=== PATIENT | male | born 1945 | race Caucasian/White ===

== ENCOUNTER → 2016-09-28 | Outpatient (CLI) | payer MEDICARE ==
--- NOTE | 2016-09-28 14:13 | US ---
EXAMINATION TYPE: US venous doppler duplex UE LT DATE OF EXAM: 09/28/2016 COMPARISON: US CLINICAL HISTORY: M79.602 Left Arm Pain/Z86.718 HX of Deep Vein Thrombosis. Left lower arm palpable/p ainful area x 3 days, patient on blood thinners SIDE PERFORMED: Left Grayscale, color doppler, spectral doppler imaging performed of the deep veins of the left upper extr emity. There is normal flow, compressibility and vascular waveforms. Left Arm: Appears negative for DVT, scanned anterior lower arm area of concern: no abnormality seen b y ultrasound at this time. IMPRESSION: No evidence for DVT at this time.
== END | disposition home or self-care (01) ==
LOC: RADUSWWP 13:00
PROVIDERS: ATTEND Family Medicine
DX: M79.602 Pain in left arm (principal); Z86.718 Personal history of other venous thrombosis and embolism

== ENCOUNTER → 2016-10-19 | Outpatient (CLI) | payer MEDICARE ==
--- NOTE | 2016-10-19 10:20 | US ---
EXAMINATION TYPE: US kidneys/renal and bladder DATE OF EXAM: 10/19/2016 COMPARISON: NONE CLINICAL HISTORY: R35.0 Urinary Frequency. Urinary frequency, pt states he is unable to empty bladder completely EXAM MEASUREMENTS: Right Kidney: 8.6 x 4.9 x 4.4 cm Left Kidney: 10.4 x 5.4 x 5.0 cm Post Void Residual Volume: 59 mL. Normal less than 50 mL. Right Kidney: Small in size, cortical thinning, no evidence of hydro Left Kidney: wnl Bladder: wnl Bilateral Jets seen: Yes Normal Post Void Residual: No IMPRESSION: 1. Mild post void residual. 2. Retroperitoneal ultrasound otherwise unremarkable.
== END | disposition home or self-care (01) ==
LOC: RADUSWWP 09:17
PROVIDERS: ATTEND Family Medicine
DX: R35.0 Frequency of micturition (principal)
CPT/HCPCS: 76770

== ENCOUNTER 2017-01-06 16:34 | Emergency (ER) | payer MEDICARE ==
[2017-01-06 16:50] VITALS: BP 120/72; PULSE 76; RESP 18; TEMP 97.5
--- NOTE | 2017-01-06 17:13 | ED ---
General Adult HPI - General Chief complaint: Back Pain/Injury Stated complaint: Fall Time Seen by Provider: 01/06/17 16:54 Source: patient, RN notes reviewed Mode of arrival: ambulatory Limitations: no limitations - History of Present Illness Initial comments: 71-year-old male presents to the emergency department with a chief complaint of fall. Patient states that yesterday he slipped on the stairs. He fell forward down the stairs he braced himself with his elbow as he did not hit his head. Patient states however he is having some back pain with this. He denies any abdominal pain. Patient denies any bowel or bladder control issues patient denies any saddle anesthesia. Patient was concerned due to his continued back pains without that he should be seen. Patient states it's right into the center. Patient denies any recent fever, chills, shortness of breath, chest pain , abdominal pain, nausea vomiting, numbness or tingling, dysuria or hematuria, constipation or diarrhea, headaches or visual changes, or any other current symptoms. - Related Data Home Medications Medication Instructions Recorded Confirmed Citalopram Hydrobromide [CeleXA] 20 mg PO HS 10/31/13 11/01/13 Cyclobenzaprine [Flexeril] 5 mg PO TID 10/31/13 11/01/13 Doxazosin [Cardura] 4 mg PO HS 10/31/13 11/01/13 Furosemide [Lasix] 20 mg PO DAILY 10/31/13 11/01/13 Lisinopril [Zestril] 2.5 mg PO DAILY 10/31/13 11/01/13 Simvastatin [Zocor] 80 mg PO HS 10/31/13 11/01/13 clonazePAM [KlonoPIN] 1 mg PO BID 10/31/13 11/01/13 metFORMIN HCL [Glucophage] 500 mg PO DAILY 10/31/13 11/01/13 oxyCODONE-APAP 5-325MG [Percocet 1 each PO Q6HR PRN 10/31/13 11/01/13 5-325 mg] traMADol HCL [Ultram] 50 mg PO Q8HR PRN 10/31/13 11/01/13 Previous Rx's Medication Instructions Recorded Aspirin EC [Ecotrin] 81 mg PO DAILY #30 tablet. 08/04/14 traMADol HCl [Ultram] 50 mg PO Q6H PRN #20 tab 01/06/17 Allergies Allergy/AdvReac Type Severity Reaction Status Date / Time hydrocodone Allergy Itching Verified 01/06/17 16:50 Review of Systems ROS Statement: Those systems with pertinent positive or pertinent negative responses have been documented in the HPI. ROS Other: All systems not noted in ROS Statement are negative. Past Medical History Past Medical History: Diabetes Mellitus, Hypertension, Prostate Disorder Additional Past Medical History / Comment(s): enlarged prostate, Factor V Leiden , DM borderline History of Any Multi-Drug Resistant Organisms: None Reported Past Surgical History: Adenoidectomy, Orthopedic Surgery, Tonsillectomy Additional Past Surgical History / Comment(s): arthroscopic knee sx, carpel tunnel release in Left hand Past Anesthesia/Blood Transfusion Reactions: No Reported Reaction Past Psychological History: Anxiety, Depression Smoking Status: Former smoker Past Alcohol Use History: None Reported Past Drug Use History: None Reported General Exam - General Exam Comments Initial Comments: General: The patient is awake and alert, in no distress, and does not appear acutely ill. Eye: Pupils are equal, round and reactive to light, extra-ocular movements are intact; there is normal conjunctiva bilaterally. No signs of icterus. Ears, nose, mouth and throat: There are moist mucous membranes and no oral lesions. Neck: The neck is supple, there is no tenderness. Cardiovascular: There is a regular rate and rhythm. No murmur, rub or gallop is appreciated. Respiratory: Lungs are clear to auscultation, respirations are non-labored, breath sounds are equal. No wheezes, stridor, rales, or rhonchi. Gastrointestinal: Soft, non-distended, non-tender abdomen without masses or organomegaly noted. There is no rebound or guarding present. No CVA tenderness. Bowel sounds are unremarkable. Back: There is tenderness to palpation in the midline to lower thoracic and lumbar spine. There is no obvious deformity. No rashes noted. Musculoskeletal: Normal ROM, no tenderness, There is no pedal edema. There is no calf tenderness or swelling. Sensation intact. Pulses equal bilaterally 2+. Neurological: CN II-XII intact, There are no obvious motor or sensory deficits. Coordination appears grossly intact. Speech is normal. Skin: Skin is warm and dry and no rashes or lesions are noted. Psychiatric: Cooperative, appropriate mood & affect, normal judgment. Limitations: no limitations Course Vital Signs 01/06/17 16:46 Temperature 97.5 F L Pulse Rate 76 Respiratory 18 Rate Blood Pressure 120/72 O2 Sat by Pulse 98 Oximetry Medical Decision Making - Medical Decision Making 71-year-old male presents for back pain after fall. At this time x-rays reviewed that showed no acute fracture. At this time we did discuss follow-up and return parameters outpatient family's questions. They stated they understood and they are in agreement with this plan. All questions have been answered. They will be discharged home. - Radiology Data Radiology results: report reviewed, image reviewed Disposition Clinical Impression: Lumbar strain Disposition: HOME SELF-CARE Condition: Stable Instructions: Acute Low Back Pain (ED) Additional Instructions: Please use medication as discussed. Please follow up with family doctor if symptoms have not improved over the next two days. Please return to the emergency room if your symptoms increase or worsen or for any other concerns. Prescriptions: traMADol HCl [Ultram] 50 mg PO Q6H PRN #20 tab PRN Reason: Pain Referrals: Jignesh Buck DO [Primary Care Provider] - 1-2 days Time of Disposition: 17:44
--- NOTE | 2017-01-06 17:34 | XR ---
EXAMINATION TYPE: XR lumbar spine 2 or 3V DATE OF EXAM: 01/06/2017 COMPARISON: 07/14/2012 HISTORY: Back pain TECHNIQUE: 3 views FINDINGS: Vertebra have normal alignment. There is hypertrophic bridging anterior osteophyte formatio n. I see no compression fracture. There is no significant disc space narrowing. Sacroiliac joints are intact. IMPRESSION: Spondylotic changes with bridging osteophyte formation. No compression fracture. No signi ficant change.
--- NOTE | 2017-01-06 17:35 | XR ---
EXAMINATION TYPE: XR thoracic spine 2V DATE OF EXAM: 01/06/2017 COMPARISON: 07/14/2012 HISTORY: Back pain TECHNIQUE: 3 views FINDINGS: The vertebra have normal alignment. Posterior elements are intact. There is no paraspinal m ass. There is hypertrophic spurring in the mid and lower thoracic spine. IMPRESSION: Spondylotic changes. No fracture. No change.
== END 2017-01-06 18:00 | disposition home or self-care (01) ==
LOC: EC 16:34
DX: S39.012A Strain of muscle, fascia and tendon of lower back, initial encounter (principal); N40.0 Benign prostatic hyperplasia without lower urinary tract symptoms; F32.9 Major depressive disorder, single episode, unspecified; I10 Essential (primary) hypertension; Z87.891 Personal history of nicotine dependence; Z88.5 Allergy status to narcotic agent; Z79.84 Long term (current) use of oral hypoglycemic drugs; Z79.899 Other long term (current) drug therapy; W10.9XXA Fall (on) (from) unspecified stairs and steps, initial encounter
CPT/HCPCS: 72070; 72100; 99283

== ENCOUNTER → 2017-04-16 | Outpatient (CLI) | payer MEDICARE ==
--- NOTE | 2017-04-16 17:52 | XR ---
EXAMINATION TYPE: XR lumbar spine 2 or 3V DATE OF EXAM: 04/16/2017 COMPARISON: NONE HISTORY: Back pain TECHNIQUE: 3 views FINDINGS: The lumbar vertebra have normal alignment. Disc spaces are fairly normal. There is hypertro phic anterior bridging osteophyte formation. Abdominal aorta is atheromatous. Posterior elements are intact. There is no compression fracture. IMPRESSION: Multilevel spondylosis. No fracture seen.
== END | disposition home or self-care (01) ==
LOC: RADXRYALE 16:45
PROVIDERS: ATTEND Family Medicine
DX: M47.816 Spondylosis without myelopathy or radiculopathy, lumbar region (principal)
CPT/HCPCS: 72100

== ENCOUNTER 2017-04-20 03:42 | Observation (INO) | payer MEDICARE ==
[2017-04-20] MEDS ORDERED: ASPIRIN 81 MG PO STA (04:00)
[2017-04-20] MEDS ORDERED: NITROGLYCERIN OINT 1 INCH/GM PACKET TOPICAL STA (04:00)
--- NOTE | 2017-04-20 04:05 | ED ---
General Adult HPI - General Chief complaint: Chest Pain Stated complaint: Back Pain, Chest pressure Time Seen by Provider: 04/20/17 03:45 Source: patient, RN notes reviewed Mode of arrival: ambulatory Limitations: no limitations - History of Present Illness Initial comments: This is a 72-year-old male presents emergency department claiming that he started having chest pain about 2 hours ago. Patient states the left side of his chest and it feels like pressure. Patient states associated with this he was having some shortness of breath. Patient denies any sweating episodes patient denies any nausea. Patient states he is a diabetic and he has high blood pressure and high cholesterol. Patient also has a history of atrial fibrillation and is on Coumadin. Patient denies any recent fever chills or cough. Patient denies any abdominal pain patient denies nausea vomiting diarrhea. Patient denies headache patient denies numbness weakness. Patient denies any lightheadedness dizziness or near syncopal episode. Patient denies any recent injury or trauma. - Related Data Home Medications Medication Instructions Recorded Confirmed Citalopram Hydrobromide [CeleXA] 20 mg PO HS 10/31/13 04/20/17 Cyclobenzaprine [Flexeril] 5 mg PO TID 10/31/13 04/20/17 Lisinopril [Zestril] 2.5 mg PO DAILY PRN 10/31/13 04/20/17 clonazePAM [KlonoPIN] 1 mg PO BID 10/31/13 04/20/17 metFORMIN HCL [Glucophage] 500 mg PO DAILY 10/31/13 04/20/17 traMADol HCL [Ultram] 50 mg PO Q8HR PRN 10/31/13 04/20/17 Atorvastatin [Lipitor] 10 mg PO HS 01/06/17 04/20/17 Cetirizine HCl [Zyrtec] 10 mg PO DAILY 01/06/17 04/20/17 Cholecalciferol [Vitamin D3] 1,000 unit PO DAILY 01/06/17 04/20/17 Tamsulosin HCl [Flomax] 0.4 mg PO BID 01/06/17 04/20/17 Warfarin [Coumadin] 6 mg PO SUTUWEFRSA 01/06/17 04/20/17 Warfarin [Coumadin] 9 mg PO MOTH 10/08/17 01/20/18 buPROPion HCL [Wellbutrin SR] 150 mg PO BID 01/06/17 04/20/17 Previous Rx's Medication Instructions Recorded Aspirin EC [Ecotrin] 81 mg PO DAILY #30 tablet. 11/02/13 traMADol HCl [Ultram] 50 mg PO Q6H PRN #20 tab 01/06/17 Allergies Allergy/AdvReac Type Severity Reaction Status Date / Time hydrocodone Allergy Itching Verified 04/20/17 03:50 Review of Systems ROS Statement: Those systems with pertinent positive or pertinent negative responses have been documented in the HPI. ROS Other: All systems not noted in ROS Statement are negative. Past Medical History Past Medical History: Diabetes Mellitus, Hypertension, Prostate Disorder Additional Past Medical History / Comment(s): enlarged prostate, Factor V Leiden , DM borderline History of Any Multi-Drug Resistant Organisms: None Reported Past Surgical History: Adenoidectomy, Orthopedic Surgery, Tonsillectomy Additional Past Surgical History / Comment(s): arthroscopic knee sx, carpel tunnel release in Left hand Past Anesthesia/Blood Transfusion Reactions: No Reported Reaction Past Psychological History: Anxiety, Depression Smoking Status: Former smoker Past Alcohol Use History: None Reported Past Drug Use History: None Reported General Exam - General Exam Comments Initial Comments: GENERAL: Patient is well-developed and well-nourished. Patient is nontoxic and well- hydrated and is in mild distress. ENT: Neck is soft and supple. No significant lymphadenopathy is noted. Oropharynx is clear. Moist mucous membranes. Neck has full range of motion without eliciting any pain. EYES: The sclera were anicteric and conjunctiva were pink and moist. Extraocular movements were intact and pupils were equal round and reactive to light. Eyelids were unremarkable. PULMONARY: Unlabored respirations. Good breath sounds bilaterally. No audible rales rhonchi or wheezing was noted. CARDIOVASCULAR: There is a regular rate and rhythm without any murmurs gallops or rubs. ABDOMEN: Soft and nontender with normal bowel sounds. No palpable organomegaly was noted. There is no palpable pulsatile mass. SKIN: Skin is clear with no lesions or rashes and otherwise unremarkable. NEUROLOGIC: Patient is alert and oriented x3. Cranial nerves II through XII are grossly intact. Motor and sensory are also intact. Normal speech, volume and content. Symmetrical smile. MUSCULOSKELETAL: Normal extremities with adequate strength and full range of motion. No lower extremity swelling or edema. No calf tenderness. LYMPHATICS: No significant lymphadenopathy is noted PSYCHIATRIC: Normal psychiatric evaluation. Normal interpersonal interactions appears functionally intact in deals appropriately with others. No signs of depression. No signs of anxiety. Limitations: no limitations Course Vital Signs 04/20/17 04/20/17 04/20/17 03:45 04:19 04:40 Temperature 98.3 F Pulse Rate 77 62 Pulse Rate [ 84 Conference Manager ] Respiratory 20 14 Rate Blood Pressure 123/66 143/63 O2 Sat by Pulse 98 97 Oximetry Medical Decision Making - Medical Decision Making EKG shows normal sinus rhythm at 66 bpm [place] interval is 178 QRS is under 12 QT interval 444 QTC is 465. Patient's EKG shows no ST segment elevation or depression Chest x-ray showed no acute abnormality. I spoke with Dr. Elijah Nava agreed to accept the patient admitted the patient I wrote admitting orders and consult to cardiology. I continued Nitropaste and aspirin on the floor. - Lab Data Result diagrams: 04/20/17 04:11 04/20/17 04:11 Lab Results 04/20/17 04/20/17 04/20/17 Range/Units 04:11 04:11 04:11 WBC 8.0 (3.8-10.6) k/uL RBC 4.99 (4.30-5.90) m/uL Hgb 14.2 (13.0-17.5) gm/dL Hct 43.2 (39.0-53.0) % MCV 86.6 (80.0-100.0) fL MCH 28.4 (25.0-35.0) pg MCHC 32.8 (31.0-37.0) g/dL RDW 14.8 (11.5-15.5) % Plt Count 279 (150-450) k/uL Neutrophils % 62 % Lymphocytes % 25 % Monocytes % 6 % Eosinophils % 4 % Basophils % 1 % Neutrophils # 4.9 (1.3-7.7) k/uL Lymphocytes # 2.0 (1.0-4.8) k/uL Monocytes # 0.5 (0-1.0) k/uL Eosinophils # 0.3 (0-0.7) k/uL Basophils # 0.1 (0-0.2) k/uL PT (9.0-12.0) sec INR (<1.2) APTT (22.0-30.0) sec Sodium 140 (137-145) mmol/L Potassium 3.9 (3.5-5.1) mmol/L Chloride 104 (98-107) mmol/L Carbon Dioxide 27 (22-30) mmol/L Anion Gap 9 mmol/L BUN 18 (9-20) mg/dL Creatinine 1.21 (0.66-1.25) mg/dL Est GFR (MDRD) Af Amer >60 (>60 ml/min/1.73 sqM) Est GFR (MDRD) Non-Af 59 (>60 ml/min/1.73 sqM) Glucose 106 H (74-99) mg/dL Calcium 8.8 (8.4-10.2) mg/dL Magnesium 2.2 (1.6-2.3) mg/dL Total Bilirubin 0.4 (0.2-1.3) mg/dL AST 31 (17-59) U/L ALT 42 (21-72) U/L Alkaline Phosphatase 91 (38-126) U/L Total Creatine Kinase 203 H (55-170) U/L CK-MB (CK-2) 2.2 (0.0-2.4) ng/mL CK-MB (CK-2) Rel Index 1.1 Troponin I <0.012 (0.000-0.034) ng/mL Total Protein 6.9 (6.3-8.2) g/dL Albumin 4.1 (3.5-5.0) g/dL 04/20/17 Range/Units 04:11 WBC (3.8-10.6) k/uL RBC (4.30-5.90) m/uL Hgb (13.0-17.5) gm/dL Hct (39.0-53.0) % MCV (80.0-100.0) fL MCH (25.0-35.0) pg MCHC (31.0-37.0) g/dL RDW (11.5-15.5) % Plt Count (150-450) k/uL Neutrophils % % Lymphocytes % % Monocytes % % Eosinophils % % Basophils % % Neutrophils # (1.3-7.7) k/uL Lymphocytes # (1.0-4.8) k/uL Monocytes # (0-1.0) k/uL Eosinophils # (0-0.7) k/uL Basophils # (0-0.2) k/uL PT 13.8 H (9.0-12.0) sec INR 1.5 H (<1.2) APTT 25.3 (22.0-30.0) sec Sodium (137-145) mmol/L Potassium (3.5-5.1) mmol/L Chloride (98-107) mmol/L Carbon Dioxide (22-30) mmol/L Anion Gap mmol/L BUN (9-20) mg/dL Creatinine (0.66-1.25) mg/dL Est GFR (MDRD) Af Amer (>60 ml/min/1.73 sqM) Est GFR (MDRD) Non-Af (>60 ml/min/1.73 sqM) Glucose (74-99) mg/dL Calcium (8.4-10.2) mg/dL Magnesium (1.6-2.3) mg/dL Total Bilirubin (0.2-1.3) mg/dL AST (17-59) U/L ALT (21-72) U/L Alkaline Phosphatase (38-126) U/L Total Creatine Kinase (55-170) U/L CK-MB (CK-2) (0.0-2.4) ng/mL CK-MB (CK-2) Rel Index Troponin I (0.000-0.034) ng/mL Total Protein (6.3-8.2) g/dL Albumin (3.5-5.0) g/dL Disposition Clinical Impression: Chest pain Disposition: ADMITTED IP TO THIS HOSP Referrals: Jignesh Buck DO [Primary Care Provider] - 1-2 days Time of Disposition: 05:10
[2017-04-20 04:23] LABS: Basophils # (A) 0.1 k/uL (0-0.2); Basophils % (A) 1 %; Eosinophils # (A) 0.3 k/uL (0-0.7); Eosinophils % (A) 4 %; HCT 43.2 % (39.0-53.0); HGB 14.2 gm/dL (13.0-17.5); Lymphocytes % (A) 25 %; MCH 28.4 pg (25.0-35.0); MCHC 32.8 g/dL (31.0-37.0); MCV 86.6 fL (80.0-100.0); Mean Platelet Volume 6.9; Monocytes # (A) 0.5 k/uL (0-1.0); Monocytes % (A) 6 %; Neutrophils # (A) 4.9 k/uL (1.3-7.7); Neutrophils % (A) 62 %; Platelet Count 279 k/uL (150-450); RBC 4.99 m/uL (4.30-5.90); RDW 14.8 % (11.5-15.5)
[2017-04-20 04:32] LABS: INR 1.5 (<1.2); Partial Thromboplastin Time 25.3 sec (22.0-30.0); Prothrombin Time 13.8 sec (9.0-12.0)
--- NOTE | 2017-04-20 04:35 | XR ---
EXAM: XR Chest, 2 Views CLINICAL HISTORY: Reason: Chest Pain TECHNIQUE: Frontal and lateral views of the chest. COMPARISON: No relevant prior studies available. FINDINGS: Lungs: Unremarkable. The lungs are clear. Pleural space: Unremarkable. No pneumothorax. Heart: Unremarkable. No cardiomegaly. Mediastinum: Unremarkable. Bones/joints: Mild degenerative changes of the thoracic spine. IMPRESSION: No acute findings.
[2017-04-20 04:39] LABS: AST 31 U/L (17-59); Albumin 4.1 g/dL (3.5-5.0); Alkaline Phosphatase 91 U/L (38-126); Anion Gap 9 mmol/L; Blood Urea Nitrogen 18 mg/dL (9-20); Calcium 8.8 mg/dL (8.4-10.2); Carbon Dioxide 27 mmol/L (22-30); Chloride 104 mmol/L (98-107); Glucose 106 mg/dL (74-99); Magnesium 2.2 mg/dL (1.6-2.3); Potassium 3.9 mmol/L (3.5-5.1); Sodium 140 mmol/L (137-145); Total Bilirubin 0.4 mg/dL (0.2-1.3); Total Protein 6.9 g/dL (6.3-8.2)
[2017-04-20 04:40] LABS: ALT 42 U/L (21-72)
[2017-04-20 04:43] LABS: Creatine Kinase 203 U/L (55-170)
[2017-04-20 04:56] LABS: Creatine Kinase MB 2.2 ng/mL (0.0-2.4); Troponin I <0.012 ng/mL (0.000-0.034)
[2017-04-20] MEDS ORDERED: NITROGLYCERIN SL TABS 0.4 MG TAB SUBLINGUAL PRN (05:10)
[2017-04-20] MEDS: NITROGLYCERIN OINT 1 INCH/GM PACKET TOPICAL SCH ×3 (06:16→17:45)
[2017-04-20 07:56] LABS: Creatine Kinase 176 U/L (55-170)
[2017-04-20] MEDS ORDERED: LORazepam 0.5 MG TAB PO PRN (08:06)
[2017-04-20 08:07] LABS: Creatine Kinase MB 1.8 ng/mL (0.0-2.4); Troponin I <0.012 ng/mL (0.000-0.034)
[2017-04-20 08:37] VITALS: RESP 16
[2017-04-20] MEDS ORDERED: LORATADINE 10 MG TAB PO SCH (09:00)
[2017-04-20] MEDS ORDERED: metFORMIN 500 MG TAB PO SCH (09:00)
[2017-04-20] MEDS ORDERED: DOCUSATE 100 MG CAP PO SCH (09:00)
[2017-04-20] MEDS ORDERED: CHOLECALCIFEROL 1,000 UNIT TAB PO SCH (09:00)
[2017-04-20] MEDS ORDERED: ASPIRIN 81 MG PO SCH (09:00)
[2017-04-20] MEDS ORDERED: TAMSULOSIN 0.4 MG CAP.ER.24H PO SCH ×2 (09:00→21:00)
[2017-04-20] MEDS ORDERED: buPROPion SR 150 MG TABLET.ER PO SCH (09:00)
--- NOTE | 2017-04-20 11:43 | CONS ---
CONSULTATION Alvarez Haque is a 72-year-old male patient, who presented with chest discomfort along the left pectoral area, fairly localized and the pain started yesterday and improved with nitroglycerin paste, but was still present in a mild form. His first 12- lead ECG shows sinus rhythm, normal PA, narrow QRS, normal ST segments in the precordial leads, flattening of the P-waves in the inferior leads. The followup 12- lead ECG after removing nitroglycerine does not show any new changes. His pain became a little worse. He denied any shortness of breath. He also complains of shortness of breath on exertion. 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 No dizziness, lightheadedness or palpitations. Past history of diabetes. He is on metformin. History of hypertension and a past history of atrial fibrillation. He is in sinus rhythm at this time and has not felt any palpitations. He is on Coumadin. REVIEW OF SYSTEMS: No fever, chills, or rigors. No cough or expectoration. No nausea, vomiting, or diarrhea. No hematuria, dysuria. No strokes, seizures or skin lesions. No musculoskeletal complaints. PHYSICAL EXAMINATION: Blood pressure is 111/66 mmHg, pulse rate is in the 60s. Temperature 98 degrees Fahrenheit. Head and neck examination is normal. Heart sounds S1, S2 normal. No murmurs or gallops. No rubs. Breath sounds are clear. No rhonchi no crackles. Abdomen is soft, nontender. Extremities are warm. No edema. LABS: His labs are reviewed and hemoglobin is normal, hemoglobin 14.2, electrolytes are normal. Cardiac enzymes are normal. IMPRESSION: 1. Atypical chest discomfort. 2. Type 2 diabetes. 3. History of paroxysmal atrial fibrillation. 4. History of hypertension. 5. Normal cardiac enzymes x2. 6. Two serial ECGs are normal. No evidence for myocardial injury so far. SUGGEST: If 3 sets of cardiac enzymes are normal, then the patient may go home and follow up with me as an outpatient. He may go home today if his enzymes are normal. Prior to that, I would like him to walk up and down the hallway to make sure he has no worsening pain with exertion. MMODL / IJN: [id number] /
[2017-04-20 11:57] LABS: Glucose,Whole Blood 106 mg/dL (75-99)
[2017-04-20 16:14] LABS: Creatine Kinase 147 U/L (55-170)
[2017-04-20 16:27] VITALS: BP 112/67; PULSE 66; TEMP 98.4
[2017-04-20 16:27] LABS: Creatine Kinase MB 1.3 ng/mL (0.0-2.4); Troponin I <0.012 ng/mL (0.000-0.034)
[2017-04-20 17:02] LABS: Glucose,Whole Blood 109 mg/dL (75-99)
[2017-04-20] MEDS ORDERED: WARFARIN 3 MG TAB PO SCH (18:00)
[2017-04-20] MEDS ORDERED: CITALOPRAM HYDROBROMIDE 20 MG TAB PO SCH (21:00)
[2017-04-20] MEDS ORDERED: traZODone HCL 50 MG TAB PO SCH (21:00)
[2017-04-20] MEDS ORDERED: ATORVASTATIN 10 MG TAB PO SCH (21:00)
[2017-04-20 23:12] LABS: Hemoglobin A1C 5.6 % (4.0-6.0)
[2017-04-21] MEDS ORDERED: ASPIRIN 325 MG TAB PO SCH (09:00)
--- NOTE | 2017-04-22 17:44 | P.DS ---
Providers Date of admission: 04/20/17 05:11 Attending physician: Belinda Nava Consults: 04/20/17 05:10 Consult Physician Urgent Consulting Provider: [facility] Consult Reason/Comments: Unstable angina Do you want consulting provider notified?: Yes [facility] Course: Mr. Haque is a 72-year-old male with a past medical history of hypertension, diabetes mellitus and atrial fibrillation coming in to the ED with a chief complaint of chest pain for 2 hours . Patient states the left side of his chest and it feels like pressure. Patient states associated with this he was having some shortness of breath. Patient denies any sweating episodes patient denies any nausea. Patient denies any recent fever chills or cough. Patient denies any abdominal pain patient denies nausea vomiting diarrhea. Patient denies headache patient denies numbness weakness. Patient denies any lightheadedness dizziness or near syncopal episode. Patient denies any recent injury or trauma. Patient denies having any cough, difficulty in breathing, no recent travel or no lower extremity swelling. Patient denies having any other active ongoing complaints. Discharge diagnosis Atypical chest pain Hypertension Paroxysmal atrial fibrillation Type 2 diabetes mellitus [id number] Plan: Patient had serial troponins and EKGs which are within normal limits. Patient is asymptomatic. He has been evaluated by cardiology services and has been cleared for discharge. He is being discharged home in a stable condition today. Plan - Discharge Summary New Discharge Prescriptions: No Action metFORMIN HCL [Glucophage] 500 mg PO DAILY Citalopram Hydrobromide [CeleXA] 40 mg PO HS Aspirin EC [Ecotrin] 81 mg PO DAILY #30 tablet. buPROPion HCL [Wellbutrin SR] 150 mg PO BID Warfarin [Coumadin] 6 mg PO SUWEFRSA Warfarin [Coumadin] 3 mg PO MOTUTH Cholecalciferol [Vitamin D3] 1,000 unit PO DAILY Cetirizine HCl [Zyrtec] 10 mg PO DAILY Atorvastatin [Lipitor] 10 mg PO HS Tamsulosin HCl [Flomax] 0.8 mg PO HS traZODone HCL 50 mg PO HS Discharge Medication List Citalopram Hydrobromide [CeleXA] 40 mg PO HS 10/31/13 [History] metFORMIN HCL [Glucophage] 500 mg PO DAILY 10/31/13 [History] Aspirin EC [Ecotrin] 81 mg PO DAILY #30 tablet. 11/02/13 [Rx] Atorvastatin [Lipitor] 10 mg PO HS 01/06/17 [History] Cetirizine HCl [Zyrtec] 10 mg PO DAILY 01/06/17 [History] Cholecalciferol [Vitamin D3] 1,000 unit PO DAILY 01/06/17 [History] Tamsulosin HCl [Flomax] 0.8 mg PO HS 01/06/17 [History] Warfarin [Coumadin] 3 mg PO MOTUTH 01/06/17 [History] Warfarin [Coumadin] 6 mg PO SUWEFRSA 01/06/17 [History] buPROPion HCL [Wellbutrin SR] 150 mg PO BID 01/06/17 [History] traZODone HCL 50 mg PO HS 04/20/17 [History] Follow up Appointment(s)/Referral(s): Alex Choi MD [STAFF PHYSICIAN] - As Needed (Office will call pt with appt time.) Jignesh Buck DO [Primary Care Provider] - 1-2 days Discharge Disposition: HOME SELF-CARE
--- NOTE | 2017-04-22 17:44 | P.HPIM ---
History of Present Illness H&P Date: 04/20/17 Chief Complaint: Chest pain Mr. Haque is a 72-year-old male with a past medical history of hypertension, diabetes mellitus and atrial fibrillation coming in to the ED with a chief complaint of chest pain for 2 hours . Patient states the left side of his chest and it feels like pressure. Patient states associated with this he was having some shortness of breath. Patient denies any sweating episodes patient denies any nausea. Patient denies any recent fever chills or cough. Patient denies any abdominal pain patient denies nausea vomiting diarrhea. Patient denies headache patient denies numbness weakness. Patient denies any lightheadedness dizziness or near syncopal episode. Patient denies any recent injury or trauma. Patient denies having any cough, difficulty in breathing, no recent travel or no lower extremity swelling. Patient denies having any other active ongoing complaints Review of Systems REVIEW OF SYSTEMS: PSYCH: No anxiety or depression history NEURO:No c/o weakness of the extremties, No facial droop, No speech abnormalities. VASCULAR: Peripheral nervous system within the normal limits no edema HEMATOLOGIC: No history of easy bleeding and bruising . No recent infections . RESPIRATORY: No cough, No SOB, No chest discomfort. IMMUNE: No infections INTEGUMENT: no rashes OPHTHALMOLOGIC: No blurry vision and no eye discharge : No dysuria or hematuria CARDIAC: As per HPI MUSCULOSKELETAL : No Aches or pains in the joints or muscles. GI: No abdominal pain, Nausea or vomiting. No constipation or diarrhea. Past Medical History Past Medical History: Diabetes Mellitus, Hypertension, Prostate Disorder Additional Past Medical History / Comment(s): enlarged prostate, Factor V Leiden , DM borderline History of Any Multi-Drug Resistant Organisms: None Reported Past Surgical History: Adenoidectomy, Orthopedic Surgery, Tonsillectomy Additional Past Surgical History / Comment(s): arthroscopic knee sx, carpel tunnel release in Left hand Past Anesthesia/Blood Transfusion Reactions: No Reported Reaction Past Psychological History: Anxiety, Depression Smoking Status: Former smoker Past Alcohol Use History: None Reported Past Drug Use History: None Reported - Past Family History Mother Family Medical History: Cancer Additional Family Medical History / Comment(s): Colon CA Father Additional Family Medical History / Comment(s): Brain anysrum Medications and Allergies Home Medications Medication Instructions Recorded Confirmed Type Citalopram Hydrobromide [CeleXA] 40 mg PO HS 10/31/13 04/20/17 History metFORMIN HCL [Glucophage] 500 mg PO DAILY 10/31/13 04/20/17 History Aspirin EC [Ecotrin] 81 mg PO DAILY #30 tablet. 11/02/13 04/20/17 Rx Atorvastatin [Lipitor] 10 mg PO HS 01/06/17 04/20/17 History Cetirizine HCl [Zyrtec] 10 mg PO DAILY 01/06/17 04/20/17 History Cholecalciferol [Vitamin D3] 1,000 unit PO DAILY 01/06/17 04/20/17 History Tamsulosin HCl [Flomax] 0.8 mg PO HS 01/06/17 04/20/17 History Warfarin [Coumadin] 3 mg PO MOTUTH 01/06/17 04/20/17 History Warfarin [Coumadin] 6 mg PO SUWEFRSA 01/06/17 04/20/17 History buPROPion HCL [Wellbutrin SR] 150 mg PO BID 01/06/17 04/20/17 History traZODone HCL 50 mg PO HS 04/20/17 04/20/17 History Allergies Allergy/AdvReac Type Severity Reaction Status Date / Time hydrocodone Allergy Itching Verified 04/20/17 11:09 nabumetone [From Relafen] Allergy Itching Verified 04/20/17 11:09 Physical Exam Vitals: Vital Signs Temp Pulse Pulse Pulse Resp BP BP 04/20/17 12:00 98.7 F 73 16 122/71 04/20/17 08:00 98.0 F 64 16 111/66 04/20/17 06:19 18 04/20/17 06:12 98.1 F 64 18 127/80 04/20/17 05:36 97.4 F L 61 18 139/82 04/20/17 04:40 62 14 143/63 04/20/17 04:19 84 04/20/17 03:45 98.3 F 77 20 123/66 Pulse Ox 04/20/17 12:00 94 L 04/20/17 08:00 96 04/20/17 06:19 04/20/17 06:12 97 04/20/17 05:36 97 04/20/17 04:40 97 04/20/17 04:19 04/20/17 03:45 98 Intake and Output 04/19/17 04/20/17 04/20/17 22:59 06:59 14:59 Other: Voiding Method Toilet # Voids 1 Weight 90.7 kg GENERAL EXAM GEN. APPEARANCE: alert, in no apparent distress HEAD EXAM: atraumatic, normocephalic, normal inspection EYE EXAM: normal appearance, PERRL, EOMI. Absent: scleral icterus, conjunctival injection, periorbital swelling ENT EXAM: normal exam, mucous membranes moist NECK EXAM: normal inspection. Absent: tenderness, meningismus, full ROM, lymphadenopathy RESPIRATORY EXAM: normal lung sounds bilaterally. Absent: respiratory distress , wheezes, rales, rhonchi, stridor CARDIOVASCULAR EXAM: regular rate, normal rhythm, normal heart sounds. Absent : systolic murmur, diastolic murmur, rubs, gallop, clicks GI/ABDOMINAL EXAM: soft, normal bowel sounds. Absent: distended, tenderness, guarding, rebound, rigid EXTREMITIES EXAM: normal inspection, full ROM, normal capillary refill. Absent : tenderness, pedal edema, joint swelling, calf tenderness NEUROLOGICAL EXAM: alert, oriented X3, CN II-XII intact, no gross motor or sensory deficit PSYCHIATRIC EXAM: normal affect, normal mood SKIN EXAM: warm, dry, intact, normal color. Absent: rash Results CBC & Chem 7: 04/20/17 04:11 04/20/17 04:11 Labs: Abnormal Lab Results - Last 24 Hours (Table) 04/20/17 04/20/17 04/20/17 Range/Units 04:11 04:11 04:11 PT 13.8 H (9.0-12.0) sec INR 1.5 H (<1.2) Glucose 106 H (74-99) mg/dL POC Glucose (mg/dL) (75-99) mg/dL Total Creatine Kinase 203 H (55-170) U/L 04/20/17 04/20/17 Range/Units 07:01 11:34 PT (9.0-12.0) sec INR (<1.2) Glucose (74-99) mg/dL POC Glucose (mg/dL) 106 H (75-99) mg/dL Total Creatine Kinase 176 H (55-170) U/L Thrombosis Risk Factor Assmnt - Choose All That Apply Each Risk Factor Represents 2 Points: Age 61-74 years Thrombosis Risk Factor Assessment Total Risk Factor Score: 2 Thrombosis Risk Factor Assessment Level: Low Risk Assessment and Plan Assessment: Atypical chest pain Hypertension Paroxysmal atrial fibrillation Type 2 diabetes mellitus [id number] Plan: Patient had serial troponins and EKGs which are within normal limits. Patient is asymptomatic. He has been evaluated by cardiology services and has been cleared for discharge. He is being discharged home in a stable condition today.
[2017-04-22] MEDS ORDERED: WARFARIN 3 MG TAB PO SCH (18:00)
== END 2017-04-20 19:30 | disposition home or self-care (01) ==
LOC: EC 03:42 → 3OBS 05:11
PROVIDERS: ADMIT Hospitalist; ATTEND Hospitalist
DX: R07.89 Other chest pain (principal); R06.02 Shortness of breath; M54.9 Dorsalgia, unspecified; I10 Essential (primary) hypertension; I48.0 Paroxysmal atrial fibrillation; E11.9 Type 2 diabetes mellitus without complications; E78.00 Pure hypercholesterolemia, unspecified; N40.0 Benign prostatic hyperplasia without lower urinary tract symptoms; D68.51 Activated protein C resistance; F41.9 Anxiety disorder, unspecified; F32.9 Major depressive disorder, single episode, unspecified; Z79.01 Long term (current) use of anticoagulants; Z87.891 Personal history of nicotine dependence; Z79.899 Other long term (current) drug therapy; Z79.84 Long term (current) use of oral hypoglycemic drugs; Z79.82 Long term (current) use of aspirin; Z80.0 Family history of malignant neoplasm of digestive organs; Z88.8 Allergy status to other drugs, medicaments and biological substances; Z88.5 Allergy status to narcotic agent
CPT/HCPCS: 99285; 36415; 93005; 80053; 82550; 82553; 83735; 84484; 85025; 85610; 85730; 83036; 71046; G0378; S0106

== ENCOUNTER → 2017-04-29 | Outpatient (CLI) | payer MEDICARE ==
--- NOTE | 2017-04-29 16:18 | MR ---
EXAMINATION TYPE: MR brain wo/w con DATE OF EXAM: 04/29/2017 COMPARISON: CT brain November 30, 2010 HISTORY: Headache, frequent falls TECHNIQUE: Multiplanar, multisequence images of the brain and brainstem is performed without and with IV contras t, utilizing 10 mL intravenous Gadavist . FINDINGS: Diffusion weighted images demonstrate no evidence of a recent infarct or other diffusion ab normality. There is no worrisome extra-axial fluid collection. The ventricular system and cisternal spaces are normal in size and appearance. The brain volume is age appropriate. There are scattered foci of T2 hyperintensity seen throughout the deep and periventricular white matter. There is 1.3 cm old infarct left posterior frontal lobe just above lateral ventricle seen best sagittal image 7 Midline structures demonstrate normal morphology. The craniocervical junction appears within normal limits. Post contrast images demonstrate no abnormal enhancement. The dural venous sinuses appear pa tent. The visualized sinuses are clear and the globes are intact. IMPRESSION: There is mild to moderate chronic small vessel ischemic change with posterior left fronta l lobe old infarct at level of centrum semiovale slightly larger than lacunar size noted. Findings pr ogressed or new from prior CT.
== END | disposition home or self-care (01) ==
LOC: RADMRIMAIN 15:04
PROVIDERS: ATTEND Physician Assistant Medical
DX: I67.82 Cerebral ischemia (principal)
CPT/HCPCS: 70553; A9581

== ENCOUNTER → 2017-06-06 | Outpatient (CLI) | payer MEDICARE ==
--- NOTE | 2017-06-06 12:16 | MR ---
EXAMINATION TYPE: MR lumbar spine wo con DATE OF EXAM: 06/06/2017 COMPARISON: NONE HISTORY: Lumbago with sciatica TECHNIQUE: Multiplanar, multisequence images of the lumbar spine were acquired. L1-L2: Some loss of disc height present. No significant disc herniation or foraminal encroachment, no central stenosis. L2-L3: There is facet arthropathy change present. No significant foraminal encroachment or central st enosis. No disc herniation. L3-L4: Facet arthropathy with hypertrophy ligamentum flavum encroaches on the lateral recess greater on the right. There is mild central stenosis due to circumferential disc bulge which is somewhat ecce ntric towards the right. There is greater foraminal encroachment. Mild to moderate central stenosis. L4-L5: Spinal stenosis is most severe at L4-5 with facet arthropathy and hypertrophy of ligamentum fl avum, circumferential extension of endplate disc complex causing bilateral foraminal encroachment as well as anterior mass effect on the thecal sac. L5-S1: Facet arthropathy with hypertrophy ligamentum flavum encroaches on the lateral recesses, circu mferential disc bulge causes anterior mass effect, there is a trefoil appearance of the thecal sac as well as lateral extension of endplate disc complex encroaching on the neural foramina. Lumbar segments are intact. No paraspinal masses are identified. Conus medullaris has a normal appe arance. There is a levoscoliosis convex left centered at the mid lumbar spine. Lumbar vertebral osmel s show preserved height and alignment, there is multilevel spondylosis with endplate discogenic marro w signal change, some loss of disc signal at the intervertebral levels compatible with disc desiccati on. Infrarenal abdominal aorta is ectatic and 3.1 cm. IMPRESSION: Degenerative disc disease, facet arthropathy, spinal stenosis greatest at L4-5. Abdominal aortic ecta monica, follow-up. Spinal curvature.
== END ==
LOC: RADMRIMAIN 11:01
PROVIDERS: ATTEND Family Medicine
DX: M48.061 Spinal stenosis, lumbar region without neurogenic claudication (principal); M51.36 Other intervertebral disc degeneration, lumbar region; M46.86 Other specified inflammatory spondylopathies, lumbar region; M43.9 Deforming dorsopathy, unspecified
CPT/HCPCS: 72148

== ENCOUNTER → 2017-06-20 | Outpatient (CLI) | payer MEDICARE ==
--- NOTE | 2017-06-20 10:09 | US ---
EXAMINATION TYPE: US duplex aorta DATE OF EXAM: 06/20/2017 Comparison: mri 2018 CLINICAL HISTORY: I71.4 Abdominal aortic aneurysm, without rupture. EXAM MEASUREMENTS: Abdominal Aorta: Proximal: 2.3 cm Mid: 2.1 Distal: 3.1 Bifurcation: 0.7 0.8 IMPRESSION: Distal abdominal aortic aneurysm measuring 3.1 cm.
== END | disposition home or self-care (01) ==
LOC: RADUSWWP 09:23
PROVIDERS: ATTEND Family Medicine
DX: I71.4 Abdominal aortic aneurysm, without rupture (principal)
CPT/HCPCS: 93979

== ENCOUNTER → 2017-06-25 | Outpatient (CLI) | payer MEDICARE ==
--- NOTE | 2017-06-25 10:39 | XR ---
EXAMINATION TYPE: XR foot complete LT DATE OF EXAM: 06/25/2017 CLINICAL HISTORY: pain TECHNIQUE: Frontal, lateral and oblique images of the left foot are obtained. COMPARISON: 07/28/2015 FINDINGS: There is no acute fracture/dislocation evident. Moderate degenerative joint space narrowin g identified. The overlying soft tissue appears unremarkable. IMPRESSION: There is no acute fracture or dislocation. ICD 10 NO FRACTURE, INITIAL EVALUATION
== END | disposition home or self-care (01) ==
LOC: RADXRYALE 10:15
PROVIDERS: ATTEND Physician Assistant Medical
DX: M79.672 Pain in left foot (principal)

== ENCOUNTER 2017-07-02 08:58 | Day surgery (SDC) | payer MEDICARE ==
[2017-06-27 15:19] VITALS: BMI 29.0
[~2017-07-02 08:58] MED LIST: LACTATED RINGERS 1,000 ML IV SCH
[2017-07-02 10:15] VITALS: TEMP 97.9
[2017-07-02] MEDS ORDERED: LIDOCAINE 1% 20 ML VIAL (10MG/ML) FOR IV START INTRADERMA ONE (10:15)
[2017-07-02 10:23] LABS: Glucose,Whole Blood 100 mg/dL (75-99)
[2017-07-02] MEDS ORDERED: LIDOCAINE 1% INJ 10MG/ML (20 ML MDV) ONE (10:24)
[2017-07-02] MEDS ORDERED: PROPOFOL 10 MG/ML 20 ML VIAL IV ONE (10:24)
[2017-07-02 10:46] VITALS: RESP 16
--- NOTE | 2017-07-02 10:50 | P.PCN ---
Date of Procedure: 07/02/17 Procedure(s) Performed: Procedure: Esophagogastroduodenoscopy and biopsy. Preoperative diagnosis: Dysphagia and weight loss. Postoperative diagnosis: 1. Small sliding hiatal hernia with no obvious esophagitis or complicated reflux disease. 2. Mild antral gastritis. 3. Biopsies obtained from the duodenum, antrum and esophagus. Preparation and sedation: Was provided by anesthesia. Brief clinical history: The patient is a 72-year-old male who is referred for this evaluation because of recent weight loss and history of difficulties swallowing and constantly needing to clear his throat. The patient had an upper endoscopy back in March 2013 that showed mild chronic esophagitis. He also had a positive Helicobacter infection which was treated. This evaluation is to assess for complicated reflux disease or other pathology. Procedure: With the patient on his left lateral decubitus position and after informed consent and adequate sedation, I passed the Olympus-GIF 160 video upper endoscope through the cricopharyngeus down the esophagus. GE junction was around 40-41 cm from the incisors and there was a small sliding hiatal hernia around 1 cm in size but no evidence of esophagitis or complicated reflux disease including any strictures or Yu's esophagus. The endoscope was then passed into the stomach which was insufflated with air and inspected in detail including the retroflex view in the cardia. There was some mottling and erythema in the antrum but no ulcers or erosions. Pyloric channel, duodenal bulb, post bulbar area and descending duodenum appeared within normal limits. I obtained biopsies from the duodenum, antrum and esophagus then the endoscope was withdrawn. The patient tolerated the procedure well. Plan: The patient was reassured. Will await biopsy results and make further plans based on his course and biopsy results. If he continues to have difficulties with his swallowing, I would consider motility studies in the absence of any significant findings on this exam today, especially, if he continues to have nutritional issues. I will keep you updated on his progress.
[2017-07-02 11:14] VITALS: BP 129/78; PULSE 58
== END 2017-07-02 11:36 | disposition home or self-care (01) ==
LOC: ORWHC2ENDO 08:58
DX: K21.0 Gastro-esophageal reflux disease with esophagitis (principal); K31.9 Disease of stomach and duodenum, unspecified; K44.9 Diaphragmatic hernia without obstruction or gangrene; K29.70 Gastritis, unspecified, without bleeding; I10 Essential (primary) hypertension; N40.0 Benign prostatic hyperplasia without lower urinary tract symptoms; E78.5 Hyperlipidemia, unspecified; E11.9 Type 2 diabetes mellitus without complications; D68.51 Activated protein C resistance; Z86.73 Personal history of transient ischemic attack (TIA), and cerebral infarction without residual deficits; Z86.718 Personal history of other venous thrombosis and embolism; Z86.711 Personal history of pulmonary embolism; Z79.01 Long term (current) use of anticoagulants; Z79.84 Long term (current) use of oral hypoglycemic drugs; Z79.891 Long term (current) use of opiate analgesic; Z79.899 Other long term (current) drug therapy; Z88.6 Allergy status to analgesic agent; Z88.5 Allergy status to narcotic agent
CPT/HCPCS: 43239; J2001; J2704; 88305

== ENCOUNTER → 2017-10-25 | Outpatient (CLI) | payer MEDICARE ==
--- NOTE | 2017-10-25 10:46 | US ---
EXAMINATION TYPE: US kidneys/renal and bladder DATE OF EXAM: 10/25/2017 COMPARISON: US CLINICAL HISTORY: N19 Unspecified kidney failure. EXAM MEASUREMENTS: Right Kidney: 8.5 x 3.9 x 4.5 cm Left Kidney: 11.0 x 4.9 x 4.9 cm Right Kidney: small compared to left is seen on the prior. No hydronephrosis or masses seen Left Kidney: No hydronephrosis or masses seen Bladder: wnl Bilateral Jets seen: Yes There is no evidence for hydronephrosis at this point in time. No nephrolithiasis is seen. No marcello s are identified. The urinary bladder is anechoic. Bilateral ureteral jets are seen. IMPRESSION: No hydronephrosis or nephrolithiasis. Slight asymmetric size of the kidneys may be congenital, unchan ged from the prior.
== END | disposition home or self-care (01) ==
LOC: RADUSWWP 09:14
PROVIDERS: ATTEND Family Medicine
DX: R93.41 Abnormal radiologic findings on diagnostic imaging of renal pelvis, ureter, or bladder (principal); N19 Unspecified kidney failure
CPT/HCPCS: 76770

== ENCOUNTER → 2018-05-16 | Outpatient (CLI) | payer MEDICARE ==
--- NOTE | 2018-05-17 11:20 | XR ---
EXAMINATION TYPE: XR Hip Complete RT DATE OF EXAM: 05/16/2018 CLINICAL HISTORY: pain TECHNIQUE: AP and frogleg views of the right hip are obtained. COMPARISON: None. FINDINGS: There is no acute fracture/dislocation evident. The joint space appears moderately narro wed. The overlying soft tissue appears unremarkable. IMPRESSION: 1. There is no acute fracture or dislocation. ICD 10 NO FRACTURE, INITIAL EVALUATION
== END | disposition home or self-care (01) ==
LOC: RADXRYALE 15:58
PROVIDERS: ATTEND Physician Assistant
DX: M25.551 Pain in right hip (principal)
CPT/HCPCS: 73502

== ENCOUNTER 2018-12-07 19:11 | Emergency (ER) | payer MEDICARE ==
[2018-12-07 19:59] VITALS: RESP 16
--- NOTE | 2018-12-07 21:03 | ED ---
Extremity Problem HPI - General Chief complaint: Extremity Problem,Nontraumatic Stated complaint: Leg pain Time Seen by Provider: 12/07/18 19:21 Source: patient, RN notes reviewed, old records reviewed Mode of arrival: ambulatory Limitations: no limitations - History of Present Illness Initial comments: This patient's a 73-year-old male presents emergency room today with chief complaint left hamstring pain. Patient reports that he felt this similar pain when he had a blood clot in the past. He is on Coumadin however and his last check was 3 weeks ago and it was normal. Patient denies any fevers or chills or chest pain. - Related Data Home Medications Medication Instructions Recorded Confirmed Citalopram Hydrobromide [CeleXA] 40 mg PO HS 10/31/13 06/27/17 metFORMIN HCL [Glucophage] 500 mg PO DAILY 10/31/13 06/27/17 Atorvastatin [Lipitor] 10 mg PO HS 01/06/17 06/27/17 Cholecalciferol [Vitamin D3] 1,000 unit PO DAILY 01/06/17 06/27/17 Warfarin [Coumadin] 3 mg PO DIRECTED 01/06/17 06/27/17 Warfarin [Coumadin] 6 mg PO DAILY 01/06/17 06/27/17 buPROPion HCL [Wellbutrin SR] 150 mg PO BID 01/06/17 06/27/17 Tamsulosin [Flomax] 0.8 mg PO DAILY 06/27/17 06/27/17 clonazePAM [KlonoPIN] 0.5 mg PO DAILY 06/27/17 06/27/17 traMADol HCL [Ultram] 50 mg PO Q6HR PRN 06/27/17 06/27/17 Previous Rx's Medication Instructions Recorded Aspirin EC [Ecotrin] 81 mg PO DAILY #30 tablet. 11/02/13 Ibuprofen [Motrin] 600 mg PO Q8HR PRN #20 tab 12/07/18 Allergies Allergy/AdvReac Type Severity Reaction Status Date / Time hydrocodone Allergy Itching Verified 12/07/18 19:16 nabumetone [From Relafen] Allergy Itching Verified 12/07/18 19:16 Review of Systems ROS Statement: Those systems with pertinent positive or pertinent negative responses have been documented in the HPI. ROS Other: All systems not noted in ROS Statement are negative. Past Medical History Past Medical History: Blood Disorder, CVA/TIA, Diabetes Mellitus, Deep Vein Thrombosis (DVT), Hyperlipidemia, Hypertension, Prostate Disorder, Pulmonary Embolus (PE) Additional Past Medical History / Comment(s): Enlarged prostate. Factor V Leiden. MINOR STROKE, SL WEAKNESS IN LEGS. DVT RT ARM, WENT TO LUNG. HAVING DYSPHAGIA WITH SOLIDS. History of Any Multi-Drug Resistant Organisms: None Reported Past Surgical History: Adenoidectomy, Orthopedic Surgery, Tonsillectomy Additional Past Surgical History / Comment(s): arthroscopic LT knee sx, carpel tunnel release in Left hand Past Anesthesia/Blood Transfusion Reactions: No Reported Reaction Past Psychological History: Anxiety, Depression Smoking Status: Former smoker Past Alcohol Use History: None Reported Past Drug Use History: None Reported - Past Family History Mother Family Medical History: Cancer Additional Family Medical History / Comment(s): Colon CA Father Additional Family Medical History / Comment(s): Brain ANEURYSM Sister(s) Family Medical History: Cancer General Exam - General Exam Comments Initial Comments: Pleasant an 73-year-old male. No distress. Limitations: no limitations General appearance: alert, in no apparent distress Head exam: Present: atraumatic, normocephalic, normal inspection Eye exam: Present: normal appearance, PERRL, EOMI. Absent: scleral icterus, conjunctival injection, periorbital swelling ENT exam: Present: normal exam, mucous membranes moist Neck exam: Present: normal inspection. Absent: tenderness, meningismus, lymphadenopathy Respiratory exam: Present: normal lung sounds bilaterally. Absent: respiratory distress, wheezes, rales, rhonchi, stridor Cardiovascular Exam: Present: regular rate, normal rhythm, normal heart sounds. Absent: systolic murmur, diastolic murmur, rubs, gallop, clicks GI/Abdominal exam: Present: soft, normal bowel sounds. Absent: distended, tenderness, guarding, rebound, rigid Extremities exam: Present: normal inspection, full ROM, normal capillary refill, other (tenderness over left hamstring. No swelling or erythema. Dorsalis pedis pulse 2 plus bilateraly. ). Absent: tenderness, pedal edema, joint swelling, calf tenderness Course Vital Signs 12/07/18 12/07/18 12/07/18 19:14 19:58 21:40 Temperature 98.6 F 98.0 F Pulse Rate 73 55 L Respiratory 18 16 16 Rate Blood Pressure 143/69 110/72 O2 Sat by Pulse 98 97 Oximetry Medical Decision Making - Medical Decision Making 73-year-old male presents today with complaint of left leg pain. He'll he reports it seems like it occurred after he was having her period. He is concerned this pain feels similar to his last blood clots. He is on Coumadin at this time. Patient's ultrasound is negative for DVT. Discussed pulled hamstring. Discussed that he can follow-up with his PCP in orthopedic. Discussed Motrin Tylenol stretching. - Radiology Data Radiology results: report reviewed Ultrasound is negative for DVT. Disposition Clinical Impression: Left hamstring muscle strain Disposition: HOME SELF-CARE Condition: Good Instructions (If sedation given, give patient instructions): Muscle Strain (ED), Hamstring Injury (ED) Additional Instructions: Please use medication as discussed. Please follow up with family doctor if symptoms have not improved over the next two days. Please return to the emergency room if your symptoms increase or worsen or for any other concerns. Prescriptions: Ibuprofen [Motrin] 600 mg PO Q8HR PRN #20 tab PRN Reason: Pain Is patient prescribed a controlled substance at d/c from ED?: No Referrals: Jignesh Buck DO [Primary Care Provider] - 1-2 days Time of Disposition: 21:37
--- NOTE | 2018-12-07 21:25 | US ---
EXAMINATION TYPE: US venous doppler duplex LE LT DATE OF EXAM: 12/07/2018 9:22 PM COMPARISON: US 2013 CLINICAL HISTORY: Pain. Left leg pain and swelling, patient states history of DVT and PE, patient on blood thinners SIDE PERFORMED: Left TECHNIQUE: The lower extremity deep venous system is examined utilizing real time linear array sonog tu with graded compression, doppler sonography and color-flow sonography. VESSELS IMAGED: External Iliac Vein (EIV) Common Femoral Vein Deep Femoral Vein Greater Saphenous Vein * Femoral Vein Popliteal Vein Small Saphenous Vein * Proximal Calf Veins (* superficial vessels) Left Leg: Appears negative for DVT IMPRESSION: No evidence of deep venous thrombosis in the left leg.
[2018-12-07 21:54] VITALS: BP 110/72; PULSE 55; TEMP 98
== END 2018-12-07 21:40 | disposition home or self-care (01) ==
LOC: EC 19:11
DX: S76.312A Strain of muscle, fascia and tendon of the posterior muscle group at thigh level, left thigh, initial encounter (principal); E11.9 Type 2 diabetes mellitus without complications; E78.5 Hyperlipidemia, unspecified; N40.0 Benign prostatic hyperplasia without lower urinary tract symptoms; F41.9 Anxiety disorder, unspecified; F32.9 Major depressive disorder, single episode, unspecified; Z86.73 Personal history of transient ischemic attack (TIA), and cerebral infarction without residual deficits; Z86.718 Personal history of other venous thrombosis and embolism; Z86.711 Personal history of pulmonary embolism; Z87.891 Personal history of nicotine dependence; Z79.84 Long term (current) use of oral hypoglycemic drugs; Z79.01 Long term (current) use of anticoagulants; Z79.899 Other long term (current) drug therapy; Z88.5 Allergy status to narcotic agent; Z88.6 Allergy status to analgesic agent
CPT/HCPCS: 99284

== ENCOUNTER → 2019-01-05 | Outpatient (CLI) | payer MEDICARE ==
--- NOTE | 2019-01-05 15:01 | XR ---
Left elbow HISTORY: Trauma and pain 1 week prior 3 views of the left elbow Bone mineralization, joint spaces and alignment are maintained. There is enthesophyte present at the insertion of the triceps tendon. No evident elbow joint effusion. IMPRESSION: No fracture or dislocation.
--- NOTE | 2019-01-05 15:07 | XR ---
Left shoulder HISTORY: Pain, fall 1 week prior 3 views of the left shoulder Bone mineralization, joint spaces and alignment are maintained. Possible basilar scarring noted incid entally left lung base. IMPRESSION: No fracture or dislocation. Shoulder MRI may be of benefit as indicated.
== END | disposition home or self-care (01) ==
LOC: RADXRYALE 13:56
PROVIDERS: ATTEND Physician Assistant Medical
DX: S40.912A Unspecified superficial injury of left shoulder, initial encounter (principal); S50.902A Unspecified superficial injury of left elbow, initial encounter

== ENCOUNTER → 2019-02-17 | Outpatient (CLI) | payer MEDICARE ==
--- NOTE | 2019-02-17 15:42 | XR ---
Right wrist HISTORY: Pain and swelling 3 views of the right wrist No comparisons There is hypertrophic change at the scaphotrapezium joint, trapezium metacarpal joint of the first di git with marginal spurring, joint space loss. Alignment is maintained. Bone mineralization is normal. There are 2 small ossific densities dorsal to the wrist which are thought to be well-corticated. No dislocation. IMPRESSION: Osteoarthritis. Correlate for history of trauma, possibly remote triquetral fracture.
== END | disposition home or self-care (01) ==
LOC: RADXRYALE 15:14
PROVIDERS: ATTEND Family Medicine
DX: M19.031 Primary osteoarthritis, right wrist (principal)

== ENCOUNTER → 2019-05-04 | Outpatient (CLI) | payer MEDICARE ==
--- NOTE | 2019-05-04 12:09 | XR ---
EXAMINATION TYPE: XR knee complete LT DATE OF EXAM: 05/04/2019 COMPARISON: NONE HISTORY: Pain TECHNIQUE: Four views are submitted. FINDINGS: Severe arthropathy of the patellofemoral joint and medial compartment knee joint was a area of hetero topic ossification or previous trauma. Hypertrophic spurring noted. No acute fracture or dislocation. IMPRESSION: 1. Severe osteoarthritis
== END | disposition home or self-care (01) ==
LOC: RADXRYALE 11:51
PROVIDERS: ATTEND Family Medicine
DX: M17.12 Unilateral primary osteoarthritis, left knee (principal)

== ENCOUNTER → 2023-02-15 | Outpatient (CLI) | payer MEDICARE ==
--- NOTE | 2023-02-15 14:15 | XR ---
EXAM TYPE: LUMBAR SPINE X RAY SERIES COMPARISON: NONE HISTORY: Pain TECHNIQUE: 4 views are submitted. FINDINGS: Alignment is anatomic. The pedicles are intact. The transverse processes are intact. There is no s pondylolisthesis. Diffuse osteopenia with vascular calcifications. Multilevel facet arthropathy L4-5 and L5-S1. Question aneurysmal dilation of the descending aorta measuring 3.5 cm. IMPRESSION: 1. Diffuse osteopenia with multilevel hypertrophic spurring and facet arthropathy. Suspect foraminal encroachment lower lumbar spine. 2. Question a 3.5 cm abdominal aortic aneurysm.. A Yellow level critical message alert has been initiated for JESSY Tran via the [employer] Critical Results System on 02/15/2023 2:13 PM. This message alert has been sent to JESSY Tran via the preferences provided by the clinician for the receipt of Radiology Critical Fi ndings. Message ID [id number].
== END | disposition home or self-care (01) ==
LOC: RADXRYALE 13:45
PROVIDERS: ATTEND Physician Assistant Medical
DX: M51.36 Other intervertebral disc degeneration, lumbar region (principal); M47.816 Spondylosis without myelopathy or radiculopathy, lumbar region
CPT/HCPCS: 72110

== ENCOUNTER → 2023-03-19 | Outpatient (CLI) | payer MEDICARE ==
--- NOTE | 2023-03-19 15:16 | US ---
EXAMINATION TYPE: US duplex aorta DATE OF EXAM: 03/19/2023 COMPARISON: US 2017, CT 05/16/2022 CLINICAL INDICATION: Male, 78 years old with history of I71.40 ABDOMINAL AORTIC ANEURYSM; Hx patient states he was diagnosed with an AAA. Prior smoker, hyperlipidemia. TECHNIQUE: Multiple sonographic images of the abdominal aorta are obtained. FINDINGS: EXAM MEASUREMENTS: Abdominal Aorta: Proximal: 2.4 x 2.3 cm Mid: 2.5 x 2.8 cm Distal: 2.8 x 3.4 cm (versus 3.1 cm and 2018 and estimated at 3.0 cm on 05/16/2022) Bifurcation: Right Illiac: 1.5 x 1.4 cm Left Illiac: 1.4 x 1.4 cm [employer]ER NOTES: Right iliac measures upper limits at 1.5 cm. Mid aorta appears ectatic. Distal aorta appears aneurysmal measures 3.4 cm in transverse and 2.8 cm in sagittal*. IMPRESSION: 1. Mild fusiform aneurysm distal abdominal aorta up to 3.4 cm. Measuring approximately 3.[address] of 05/16/2022. There may be some measurement variation due to differences in imaging modality. Ongo ing follow-up recommended. 2. Borderline ectatic right iliac artery at 1.5 cm.
== END | disposition home or self-care (01) ==
LOC: RADUSWWP 08:36
PROVIDERS: ATTEND Family Medicine
DX: I71.40 Abdominal aortic aneurysm, without rupture, unspecified (principal); E78.5 Hyperlipidemia, unspecified; Z87.891 Personal history of nicotine dependence
CPT/HCPCS: 93979

== ENCOUNTER → 2023-07-31 | Outpatient (CLI) | payer MEDICARE ==
--- NOTE | 2023-07-31 10:26 | XR ---
EXAMINATION TYPE: XR abdomen 2V DATE OF EXAM: 07/31/2023 COMPARISON: NONE HISTORY: None TECHNIQUE: One view abdominal series FINDINGS: The osseous structures are intact. The bowel gas pattern is nonspecific. A pleural based thickening and calcifications with small effusions and basilar subsegmental consolidation. Correlate for inhalat ional\asbestos related disease.. 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 Diffuse osteopenia and degenerative changes of the spine. IMPRESSION: 1. Nonspecific abdomen. No obstruction. Moderate retained stool burden. 2. Correlate for inhalational\asbestos-related disease.
== END | disposition home or self-care (01) ==
LOC: RADXRYALE 09:33
PROVIDERS: ATTEND Physician Assistant Medical
DX: K59.00 Constipation, unspecified (principal)
CPT/HCPCS: 74019